=== PATIENT | male | born 2000 | race Caucasian/White ===

== ENCOUNTER 2023-02-01 17:59 | Emergency (ER) | payer OTHER, SELFPAY ==
[2023-02-01] MEDS ORDERED: Ondansetron PF 4 MG/2 ML Vial ONE (19:33)
[2023-02-01] MEDS ORDERED: Morphine 4 MG/ML VIAL ONE (19:33)
[2023-02-01] MEDS ORDERED: Midazolam HCl 2 mg/2 ml Vial ONE (19:33)
== END 2023-02-01 21:05 | disposition home or self-care (01) ==
LOC: NAV ERS 17:59
DX: S43.004A Unspecified dislocation of right shoulder joint, initial encounter (principal); V80.010A Animal-rider injured by fall from or being thrown from horse in noncollision accident, initial encounter
CPT/HCPCS: 23650; J2250; J2270; J2405